=== PATIENT | male | born 1945 | race Caucasian/White ===

== ENCOUNTER 2020-08-30 12:49 | Inpatient (IN) | payer OTHER, MEDICARE ==
[~2020-08-30] VITALS: Ht 175.3 cm; Wt 99.8 kg
[~2020-08-30 12:49] MED LIST: Cipro500 MG PO; HYDCHL12.5 PO; METO25ER PO
[2020-08-30 13:16] LABS: BASOPHILS ABSOLUTE AUTO 0.03 K/mm3 (0.00-0.23); BASOPHILS PERCENT AUTO 0 % (0-2); EOSINOPHILS PERCENT AUTO 0 % (0-6); Hemoglobin 11.9 g/dL (13.5-17.5); IMMATURE GRAN ABSOLUTE AUTO 0.12 K/mm3 (0.00-0.10); IMMATURE GRAN PERCENT AUTO 1 % (0-1); LYMPHOCYTES ABSOLUTE AUTO 0.98 K/mm3 (0.84-5.20); LYMPHOCYTES PERCENT AUTO 8 % (21-46); MONOCYTES ABSOLUTE AUTO 0.76 K/mm3 (0.16-1.47); MONOCYTES PERCENT AUTO 6 % (4-13); Mean Corpuscular HGB 30.3 pg (26.0-34.0); Mean Corpuscular HGB Conc 33.1 g/dL (31.5-36.5); Mean Corpuscular Volume 92 fL (80-100); Mean Platelet Volume 11.9 fL (9.1-12.4); NEUTROPHILS ABSOLUTE AUTO 10.62 K/mm3 (1.96-9.15); NEUTROPHILS PERCENT AUTO 85 % (41-73); Platelet Count 144 K/mm3 (150-400); RDW Coefficient Variation 13.1 % (11.7-14.2); RDW Standard Deviation 44.7 fL (35.1-46.3); Red Blood Cell Count 3.93 M/mm3 (4.30-5.90); White Blood Cell Count 12.51 K/mm3 (4.00-11.30)
[2020-08-30 13:40] LABS: Alanine Aminotransfer (ALT/SGP 30 U/L (12-78); Albumin/Globulin Ratio 0.8 (0.8-1.8); Alk Phos 65 U/L (50-136); Anion Gap 6 mmol/L (6-16); Aspartate Aminotrans (AST/SGOT 18 U/L (12-37); Bilirubin, Total 0.8 mg/dL (0.1-1.0); Blood Urea Nitrogen 19 mg/dL (8-24); CO2, Blood 27 mmol/L (21-32); Calcium, Blood 8.4 mg/dL (8.5-10.1); Chloride, Blood 102 mmol/L (98-108); Creatinine, Blood 0.86 mg/dL (0.60-1.20); Globulin, Blood 3.8 g/dL (2.2-4.0); Glomerular Filtration Rate >60 (60-); Glucose, Blood 124 mg/dL (70-99); Potassium, Blood 3.6 mmol/L (3.5-5.5); Sodium, Blood 135 mmol/L (136-145); Total Protein, Blood 6.8 g/dL (6.4-8.2)
[2020-08-30] MEDS ORDERED: AMLODIPINE BESYL5 MG PO (14:39)
[2020-08-30] MEDS ORDERED: ATEN25 PO (14:40)
[2020-08-30] MEDS ORDERED: FURO20 PO (14:40)
[2020-08-30] MEDS ORDERED: GABA300 PO ×2 (14:41→14:42)
[2020-08-30] MEDS ORDERED: GLIP5 PO (14:42)
[2020-08-30] MEDS ORDERED: LOSARTAN POTAS100 M1 PO (14:44)
[2020-08-30] MEDS ORDERED: LIDO700A20 TD (14:44)
[2020-08-30] MEDS ORDERED: MOBIC15 MG PO (14:45)
[2020-08-30] MEDS ORDERED: OMEP20ER PO (14:46)
[2020-08-30] MEDS ORDERED: POTA10T PO (14:46)
[2020-08-30] MEDS ORDERED: PRAZ2 PO (14:47)
[2020-08-30] MEDS ORDERED: ZOCOR20 MG PO (14:48)
[2020-08-30] MEDS ORDERED: SERT25 PO (14:48)
[2020-08-30] MEDS ORDERED: FISH OIL 1,2001 EAC7 PO (14:49)
[2020-08-30] MEDS ORDERED: ASPIR 8181 M1 PO (14:49)
[2020-08-30] MEDS ORDERED: VITAMIN D31000 UNI1 PO (14:50)
[2020-08-30] MEDS ORDERED: Hair, Skin & N1 EACH PO (14:50)
[2020-08-30] MEDS ORDERED: SILD50TA PO (14:51)
[2020-08-30 15:18] LABS: SARS-Cov-2 (COVID-19) PCR, MMC NEGATIVE (NEGATIVE)
--- NOTE | 2020-08-30 18:44 | NUR ---
PT ARRIVED TO ROOM VIA W/C. TRANSFERED TO BED IND. ORIENTED TO ROOM AND CALL LIGHT. LUNGS CLEAR, HRR, ABDOMEN VERY FIRM AND DISTENDED, TENDER TO PT. PAIN REPORTED TO BE 4/10, DENIES PAIN MEDS AT THIS TIME. DENIES N/V. TOLERATING FULL LIQS. PT LOOKING FORWARD TO SURGERY TOMORROW.
--- NOTE | 2020-08-31 06:39 | NUR ---
SHIFT SUMMARY S/P ABD PAIN, SURGERY PLANNED FOR TODAY, A/O X4, VSS W/ MIDLY ELEVATED TEMPERATURE, REDUCED HEATER IN ROOM, PROVIDED FAN, REMOVED EXTRA BLANKETS, COACHED PATIENT TO DO SOME DEEP BREATHING. PAIN WELL CONTROLLED, AMBULATES INDEPENDENTLY, NPO SINCE MIDNIGHT FOR SURGERY. NO ACUTE EVENTS THIS SHIFT. CALL LIGHT IN REACH, WILL CONTINUE TO MONITOR AND REPORT TO ONCOMING DAY RN.
[2020-08-31 06:56] LABS: BASOPHILS ABSOLUTE AUTO 0.01 K/mm3 (0.00-0.23); BASOPHILS PERCENT AUTO 0 % (0-2); EOSINOPHILS ABSOLUTE AUTO 0.03 K/mm3 (0.00-0.68); EOSINOPHILS PERCENT AUTO 0 % (0-6); Hematocrit 32.5 % (37.0-53.0); Hemoglobin 10.7 g/dL (13.5-17.5); IMMATURE GRAN ABSOLUTE AUTO 0.04 K/mm3 (0.00-0.10); IMMATURE GRAN PERCENT AUTO 0 % (0-1); LYMPHOCYTES ABSOLUTE AUTO 0.72 K/mm3 (0.84-5.20); LYMPHOCYTES PERCENT AUTO 7 % (21-46); MONOCYTES ABSOLUTE AUTO 0.75 K/mm3 (0.16-1.47); MONOCYTES PERCENT AUTO 7 % (4-13); Mean Corpuscular HGB 30.5 pg (26.0-34.0); Mean Corpuscular HGB Conc 32.9 g/dL (31.5-36.5); Mean Corpuscular Volume 93 fL (80-100); Mean Platelet Volume 12.2 fL (9.1-12.4); NEUTROPHILS ABSOLUTE AUTO 8.65 K/mm3 (1.96-9.15); NEUTROPHILS PERCENT AUTO 85 % (41-73); Platelet Count 157 K/mm3 (150-400); RDW Coefficient Variation 13.3 % (11.7-14.2); Red Blood Cell Count 3.51 M/mm3 (4.30-5.90)
[2020-08-31 07:07] LABS: International Normalized Ratio 1.16; Prothrombin Time Results 12.4 Sec (9.7-11.5)
[2020-08-31 07:53] LABS: Alanine Aminotransfer (ALT/SGP 30 U/L (12-78); Albumin, Blood 2.7 g/dL (3.4-5.0); Albumin/Globulin Ratio 0.8 (0.8-1.8); Alk Phos 65 U/L (50-136); Anion Gap 8 mmol/L (6-16); Aspartate Aminotrans (AST/SGOT 16 U/L (12-37); Bilirubin, Total 0.9 mg/dL (0.1-1.0); Blood Urea Nitrogen 20 mg/dL (8-24); Bun/Creatinine Ratio 22.8 (12.0-20.0); CO2, Blood 25 mmol/L (21-32); Calcium, Blood 8.3 mg/dL (8.5-10.1); Chloride, Blood 102 mmol/L (98-108); Creatinine, Blood 0.88 mg/dL (0.60-1.20); Globulin, Blood 3.6 g/dL (2.2-4.0); Glomerular Filtration Rate >60 (60-); Glucose, Blood 149 mg/dL (70-99); Magnesium, Blood 2.1 mg/dL (1.6-2.4); Potassium, Blood 3.6 mmol/L (3.5-5.5); Sodium, Blood 135 mmol/L (136-145); Total Protein, Blood 6.3 g/dL (6.4-8.2)
--- NOTE | 2020-08-31 19:42 | NUR ---
SHIFT SUMMARY PT A&OX4, VSS, RA WHILE AWAKE, 4LNC OR CPAP NOC, S/P LAP LOLI 3 LAP SITES CDI, CHRISTINA WITH SANG OUT. PAIN MANAGED WITH 7.5 NORCO. MEGHAN PO, DENIES N&V. VOIDING WELL. AMBULATING INDEPENDENTLY IN ROOM, IN HALLWAY, UP TO CHAIR. REPORT PROVIDED TO CAT RN.
--- NOTE | 2020-09-01 04:21 | NUR ---
SHIFT SUMMARY POD1 ACUTE LOLI. VSS. AOX4. PT ON RA AT REST, UP IN CHAIR WHEN FIRST CAME IN. PT SAT IN BED, CONTINOUS BIOX WAS PLACED LAST NIGHT AND HE WAS SATURATING AT 87-92 ON ROOM AIR. PT WAS PUT IN 4L O2, AND HE WAS SATURATING AT 90-93%. VSS. ASYMPTOMATIC. DENIES SOB AND CHEST PAIN. PT ON CPAP AT NIGHT. SLEPT GOOD T/O SHIFT. PT REPORT MILD ABD PAIN. PAIN MANAGED WITH NORCO 7.5. TOLERATING REG DIET DENIES N/V. VOIDING WELL. INDEPENDENT IN ROOM. ABD BINDER IN PLACED. CHRISTINA DRAIN INTACT.IN SUCTION/BULB. 3 LAP SITE REMAIN CDI. IV WAS ACCIDENTALLY PULLED LAST NIGTH. NEW 20G IV ON L AC WAS PLACED. ABX ADMINISTERED. CALL LIGHT WITHIN REACH.
--- NOTE | 2020-09-01 18:01 | NUR ---
SHIFT SUMMARY PATIENT ALERT AND ORIENTED THROUGHOUT SHIFT. INDEPENDENT IN THE ROOM. TOLERATING ADA DIET AND VOIDING WELL. DENIES ABD PAIN. LAP SITES X3 C/D/I. CHRISTINA DRAIN SMALL AMOUNT SS OUTPUT. ABX Q6 OTHERWISE SALINE LOCKED. PLAN TO DISCHARGE HOME TOMORROW 09/01/20.
--- NOTE | 2020-09-02 05:26 | NUR ---
SHIFT SUMMARY POD2 LAP LOLI, A/O X4, VSS, TOLERATING PO, AMBULATING INDEPENDENTLY, PAIN WELL MANAGED PER EMAR, NO ACUTE EVENTS THIS SHIFT, TENTATIVE DC TODAY. CALL LIGHT IN REACH, WILL CONTINUE TO MONITOR AND REPORT TO ONCOMING DAY RN.
[2020-09-02] MEDS ORDERED: OXYC5 PO (13:16)
--- NOTE | 2020-09-02 13:28 | NUR ---
DISCHARGE SUMMARY PATIENT ALERT AND ORIENTED THROUGHOUT SHIFT. TOLERATING ADA DIET FLUIDS. PASSING GAS, BOWEL MOVEMENTS, AND VOIDING WELL. ABD PAIN CONTROLLED WITH PO PAIN MEDS. CHRISTINA DRAIN DC'D BY GENERAL SURGERY. LAP SITES X3 C/D/I. DISCHARGE ORDERS OBTAINED. DISCHARGE EDUCATION GIVEN ON WOUNC CARE, DIET, ACTIVITY, NEW RX, AND FOLLOW UP APPOINTMENTS. IV DC'D WNL. PT LEFT UNIT VIA WHEELCHAIR AT 1325 FOR HOME.
== END 2020-09-02 13:51 | disposition home or self-care (01) | DRG 419 ==
LOC: ER 12:49 → SURS 15:54
PROVIDERS: Emergency Medicine; Nurse Practitioner Acute Care; Physician Assistant; Surgery; ADMIT Internal Medicine
PROC: 0FT44ZZ Resection of Gallbladder, Percutaneous Endoscopic Approach (ICD-10-PCS; principal; 2020-08-31 09:45)
DX: K80.00 Calculus of gallbladder with acute cholecystitis without obstruction (principal); Z20.822 Contact with and (suspected) exposure to COVID-19; K82.A1 Gangrene of gallbladder in cholecystitis; I10 Essential (primary) hypertension; F43.10 Post-traumatic stress disorder, unspecified; F41.9 Anxiety disorder, unspecified; E11.40 Type 2 diabetes mellitus with diabetic neuropathy, unspecified; K21.9 Gastro-esophageal reflux disease without esophagitis; N40.0 Benign prostatic hyperplasia without lower urinary tract symptoms; E78.2 Mixed hyperlipidemia; E66.01 Morbid (severe) obesity due to excess calories; G47.33 Obstructive sleep apnea (adult) (pediatric); Z68.32 Body mass index [BMI] 32.0-32.9, adult; Z99.89 Dependence on other enabling machines and devices; Z96.611 Presence of right artificial shoulder joint; Z96.612 Presence of left artificial shoulder joint; Z98.890 Other specified postprocedural states; Z87.891 Personal history of nicotine dependence; Z88.8 Allergy status to other drugs, medicaments and biological substances; Z79.82 Long term (current) use of aspirin; Z79.84 Long term (current) use of oral hypoglycemic drugs; Z79.899 Other long term (current) drug therapy
CPT/HCPCS: 71046; 76705; 80053; 82947; 83690; 83735; 84484; 85025; 85610; 88304; 93005; 93010; 94660; 94762; 96365; 96375; 99285-25; A9270; J1100; J1885; J2250; J2405; J2543; J2704; J3010; J7030; J7120; U0004

== ENCOUNTER 2021-06-30 16:51 | Emergency (ER) | payer OTHER ==
[~2021-06-30] VITALS: Ht 175.3 cm; Wt 96.2 kg
[~2021-06-30 16:51] MED LIST changes: +AMLODIPINE BESYL5 MG PO; +ASPIR 8181 M1 PO; +ATEN25 PO; +FISH OIL 1,2001 EAC7 PO; +FURO20 PO; +GABA300 PO; +GLIP5 PO; +Hair, Skin & N1 EACH PO; +LIDO700A20 TD; +LOSARTAN POTAS100 M1 PO; +MOBIC15 MG PO; +OMEP20ER PO; +OXYC5 PO; +POTA10T PO; +PRAZ2 PO; +SERT25 PO; +SILD50TA PO; +VITAMIN D31000 UNI1 PO; +ZOCOR20 MG PO
[2021-06-30 17:45] LABS: BASOPHILS ABSOLUTE AUTO 0.05 K/mm3 (0.00-0.23); BASOPHILS PERCENT AUTO 1 % (0-2); EOSINOPHILS ABSOLUTE AUTO 0.07 K/mm3 (0.00-0.68); EOSINOPHILS PERCENT AUTO 1 % (0-6); Hematocrit 42.6 % (37.0-53.0); Hemoglobin 14.4 g/dL (13.5-17.5); IMMATURE GRAN ABSOLUTE AUTO 0.02 K/mm3 (0.00-0.10); IMMATURE GRAN PERCENT AUTO 0 % (0-1); LYMPHOCYTES ABSOLUTE AUTO 1.25 K/mm3 (0.84-5.20); LYMPHOCYTES PERCENT AUTO 19 % (21-46); MONOCYTES ABSOLUTE AUTO 0.54 K/mm3 (0.16-1.47); MONOCYTES PERCENT AUTO 8 % (4-13); Mean Corpuscular HGB 30.3 pg (26.0-34.0); Mean Corpuscular HGB Conc 33.8 g/dL (31.5-36.5); Mean Corpuscular Volume 90 fL (80-100); NEUTROPHILS ABSOLUTE AUTO 4.64 K/mm3 (1.96-9.15); NEUTROPHILS PERCENT AUTO 71 % (41-73); Platelet Count 233 K/mm3 (150-400); RDW Coefficient Variation 12.4 % (11.7-14.2); RDW Standard Deviation 40.6 fL (35.1-46.3); Red Blood Cell Count 4.76 M/mm3 (4.30-5.90); White Blood Cell Count 6.57 K/mm3 (4.00-11.30)
[2021-06-30 18:05] LABS: Alanine Aminotransfer (ALT/SGP 37 U/L (12-78); Albumin/Globulin Ratio 1.1 (0.8-1.8); Alk Phos 81 U/L (50-136); Anion Gap 4 mmol/L (6-16); Aspartate Aminotrans (AST/SGOT 20 U/L (12-37); Bilirubin, Total 0.3 mg/dL (0.1-1.0); Blood Urea Nitrogen 19 mg/dL (8-24); Bun/Creatinine Ratio 27.8 (12.0-20.0); CO2, Blood 27 mmol/L (21-32); Calcium, Blood 9.3 mg/dL (8.5-10.1); Chloride, Blood 108 mmol/L (98-108); Creatinine, Blood 0.68 mg/dL (0.60-1.20); Globulin, Blood 3.5 g/dL (2.2-4.0); Glomerular Filtration Rate >60 (60-); Glucose, Blood 128 mg/dL (70-99); Potassium, Blood 4.3 mmol/L (3.5-5.5); Sodium, Blood 139 mmol/L (136-145); Total Protein, Blood 7.5 g/dL (6.4-8.2)
== END 2021-06-30 20:24 | disposition home or self-care (01) ==
LOC: ER 16:51
PROVIDERS: Physician Assistant
DX: R55 Syncope and collapse (principal); E11.9 Type 2 diabetes mellitus without complications; I10 Essential (primary) hypertension; K21.9 Gastro-esophageal reflux disease without esophagitis; Z87.891 Personal history of nicotine dependence; Z79.899 Other long term (current) drug therapy
CPT/HCPCS: 71046; 80053; 84484; 85025; 93005; 93010; 99284-25

== ENCOUNTER → 2023-06-10 | Outpatient (CLI) | payer OTHER ==
[~2023-06-10] MED LIST changes: +Percocet 5-3251 EACH PO; +Robaxin750 MG PO
== END ==
LOC: LAB SHORT 10:34 → LAB 10:34
DX: L72.3 Sebaceous cyst (principal); L08.9 Local infection of the skin and subcutaneous tissue, unspecified
CPT/HCPCS: 87070; 87075; 87205